=== PATIENT | female | born 1995 | race Caucasian/White ===

== ENCOUNTER 2016-05-14 19:38 | Emergency (ER) | payer SELFPAY ==
[~2016-05-14] VITALS: Ht 172.7 cm; Wt 72.6 kg
[2016-05-14 21:18] LABS: NEG OBC UR NEG; POS OBC UR POS
[2016-05-14 21:22] LABS: BILIRUBIN,URINE NEGATIVE (NEG); GLUCOSE,URINE NEGATIVE (NEG); NITRITE,URINE NEGATIVE (NEG); PROTEIN,URINE NEGATIVE (NEG-TRACE)
[2016-05-14 21:30] LABS: BACTERIA,URINE FEW /HPF (0-FEW); RBC,URINE 0 /HPF (0-2); SQUAMOUS EPITHELIAL CELL,UR MANY /LPF; WBC,URINE 0 /HPF (0-4)
[2016-05-14 21:36] LABS: BASO % 0 % (0-3); EOS % 10 % (0-3); HEMATOCRIT 39.6 % (36.0-47.0); HEMOGLOBIN 13.3 g/dL (12.0-15.5); LYMPH # 1.7 x10^3/uL (1.0-4.8); LYMPH % 21 % (24-48); MEAN CORPUSCULAR HEMOGLOBIN 31 pg (25-35); MEAN CORPUSCULAR HGB CONC 34 g/dL (31-37); MEAN CORPUSCULAR VOLUME 93 fL (79-100); MONO % 8 % (0-9); NEUT % 60 % (31-73); PLATELET COUNT 234 x10^3/uL (140-400); RED BLOOD COUNT 4.26 x10^6/uL (3.50-5.40); RED CELL DISTRIBUTION WIDTH 13.3 % (11.5-14.5); WHITE BLOOD COUNT 8.2 x10^3/uL (4.0-11.0)
[2016-05-14 21:49] LABS: CALCIUM 8.9 mg/dL (8.5-10.1); CREATININE 0.6 mg/dL (0.6-1.0); GFR 126.2; POTASSIUM 4.1 mmol/L (3.5-5.1)
[2016-05-14 21:55] LABS: ALBUMIN 3.4 g/dL (3.4-5.0); ALBUMIN/GLOBULIN RATIO 0.9 (1.0-1.7); TOTAL BILIRUBIN 0.4 mg/dL (0.2-1.0)
--- NOTE | 2016-05-14 23:10 | RAD ---
PROCEDURE Ob ultrasound less than 14 weeks to include transabdominal and transvaginal imaging 05/14/2016 HISTORY Left pelvic pain. TECHNIQUE Using the distended urinary bladder as a sonographic window, a real-time ultrasound examination of the pelvis was performed. Additionally in attempt to better evaluate the uterus and adnexa, a transvaginal ultrasound study was performed. Multiple images were obtained. FINDINGS A gestational sac is seen within the endometrial canal of the body/fundus of the uterus. Within this gestational sac a yolk sac and associated embryonic pole are seen. The CRL of the embryonic pole measures 3.3 millimeters. This corresponds to an estimated gestational age by ultrasound of 6 weeks 0 days +or minus a standard deviation of 4 days. Embryonic cardiac activity is seen with a heart rate of 104 beats per minute. The uterus is otherwise within normal limits. Both ovaries are within normal limits in size and echogenicity. The right ovary measures 2.8 x 2.0 x 1.8 centimeters in size. The left ovary measures 3.0 x 1.7 x 1.5 centimeters in size. No adnexal mass is seen. No free fluid is noted. IMPRESSION Single living IUP with an estimated gestational age by ultrasound of 6 weeks 0 days +or minus a standard deviation of 4 days. The estimated date of delivery by ultrasound is 01/07/2017. Electronically signed by: Rodolfo Diaz MD (May 14, 2016 23:09:34)
--- NOTE | 2016-05-15 00:06 | PHYS DOC ---
Past Medical History Past Medical History: Other Additional Past Medical Histor: eczema Past Surgical History: No Surgical History Alcohol Use: None Drug Use: None Adult General Chief Complaint Chief Complaint: ABDOMINAL PAIN IN HPI HPI Patient is a 21 year old female who has no history significant for hypertension diabetes liver longer kidney problems. No surgeries. No tobacco alcohol or drugs. Not allergic to anything. 1 para 0. Last period was 2 months ago. No fevers shaking chills positive nausea no vomiting diarrhea. No vaginal discharge no chest pain shortness of breath dysuria frequency urgency. No vaginal discharge. Mild left lower abdominal pain. Patient's ER today secondary to abdominal pain and finding out she was recently. Patient's physical exam was unremarkable. Patient has mild tenderness to palpation to her left lower quadrant. Patient's pelvic exam was unremarkable. Os is closed no cervical motion tenderness no vaginal bleeding. Patient's ultrasound revealed a 6 week IUP. Assessment/plan #1 and abdominal pain. Threatened miscarriage. Patient be discharged home in stable condition to follow up with her primary care physician for further outpatient evaluation. Review of Systems Review of Systems Constitutional: Denies fever or chills [] Eyes: Denies change in visual acuity, redness, or eye pain [] All other review systems are negative except as documented in history of present illness portion. Allergies Allergies Allergies Coded Allergies Type Severity Reaction Last Updated Verified No Known Drug Allergies 02/18/14 No Physical Exam Physical Exam Constitutional: Well developed, well nourished, no acute distress, non-toxic appearance. [] HENT: Normocephalic, atraumatic, bilateral external ears normal, oropharynx moist, no oral exudates, nose normal. [] Eyes: PERRLA, EOMI, conjunctiva normal, no discharge. [] Neck: Normal range of motion, no tenderness, supple, no stridor. [] Cardiovascular:Heart rate regular rhythm, no murmur [] Lungs & Thorax: Bilateral breath sounds clear to auscultation [] Abdomen: Bowel sounds normal, soft, no tenderness, no masses, no pulsatile masses. [] Skin: Warm, dry, no erythema, no rash. [] Back: No tenderness, no CVA tenderness. [] Extremities: No tenderness, no cyanosis, no clubbing, ROM intact, no edema. [] Neurologic: Alert and oriented X 3, normal motor function, normal sensory function, no focal deficits noted. [] Psychologic: Affect normal, judgement normal, mood normal. [] Pelvic exam. See above Current Patient Data Vital Signs Vital Signs Date Time Temp Pulse Resp B/P Pulse Ox O2 Delivery O2 Flow Rate FiO2 05/14/16 19:55 99.2 106 20 133/74 100 Room Air 99.2 Lab Values Laboratory Tests Test 05/14/16 19:45 05/14/16 21:30 Urine Collection Type Unknown Urine Color Yellow Urine Clarity Clear Urine pH 7.0 Urine Specific [place] 1.010 Urine Protein Negativemg/dL (NEG-TRACE) Urine Glucose (UA) Negativemg/dL (NEG) Urine Ketones (Stick) Negativemg/dL (NEG) Urine Blood Negative (NEG) Urine Nitrite Negative (NEG) Urine Bilirubin Negative (NEG) Urine Urobilinogen Dipstick 1.0mg/dL (0.2 mg/dL) Urine Leukocyte Esterase Negative (NEG) Urine RBC 0/HPF (0-2) Urine WBC 0/HPF (0-4) Urine Squamous Epithelial Cells Many/LPF Urine Bacteria Few/HPF (0-FEW) Urine Mucus Mod/LPF Urine Test Positive (NEG) White Blood Count 8.2x10^3/uL (4.0-11.0) Red Blood Count 4.26x10^6/uL (3.50-5.40) Hemoglobin 13.3g/dL (12.0-15.5) Hematocrit 39.6% (36.0-47.0) Mean Corpuscular Volume 93fL (79-100) Mean Corpuscular Hemoglobin 31pg (25-35) Mean Corpuscular Hemoglobin Concent 34g/dL (31-37) Red Cell Distribution Width 13.3% (11.5-14.5) Platelet Count 234x10^3/uL (140-400) Neutrophils (%) (Auto) 60% (31-73) Lymphocytes (%) (Auto) 21% (24-48) L Monocytes (%) (Auto) 8% (0-9) Eosinophils (%) (Auto) 10% (0-3) H Basophils (%) (Auto) 0% (0-3) Neutrophils # (Auto) 5.0x10^3uL (1.8-7.7) Lymphocytes # (Auto) 1.7x10^3/uL (1.0-4.8) Monocytes # (Auto) 0.7x10^3/uL (0.0-1.1) Eosinophils # (Auto) 0.8x10^3/uL (0.0-0.7) H Basophils # (Auto) 0.0x10^3/uL (0.0-0.2) Maternal Serum HCG Beta Subunit 47128mIE/mL (0-6) H Sodium Level 139mmol/L (136-145) Potassium Level 4.1mmol/L (3.5-5.1) Chloride Level 105mmol/L (98-107) Carbon Dioxide Level 26mmol/L (21-32) Anion Gap 8 (6-14) Blood Urea Nitrogen 5mg/dL (7-20) L Creatinine 0.6mg/dL (0.6-1.0) Estimated GFR (Cockcroft-Gault) 126.2 BUN/Creatinine Ratio 8 (6-20) Glucose Level 90mg/dL (70-99) Calcium Level 8.9mg/dL (8.5-10.1) Total Bilirubin 0.4mg/dL (0.2-1.0) Aspartate Amino Transferase (AST) 12U/L (15-37) L Alanine Aminotransferase (ALT) 19U/L (14-59) Alkaline Phosphatase 49U/L (46-116) Total Protein 7.0g/dL (6.4-8.2) Albumin 3.4g/dL (3.4-5.0) Albumin/Globulin Ratio 0.9 (1.0-1.7) L Laboratory Tests 05/14/16 21:30 Laboratory Tests 05/14/16 21:30 EKG EKG [] Radiology/Procedures Radiology/Procedures [] Course & Med Decision Making Course & Med Decision Making Pertinent Labs and Imaging studies reviewed. (See chart for details) [] A/P: #1 threatened miscarriage. See above. Patient is clinically hemodynamically stable for discharged home. Precautions were reviewed with the patient. Patient is to follow-up with her primary care physician on an outpatient basis for further OB evaluation. Dragon Disclaimer Dragon Disclaimer This electronic medical record was generated, in whole or in part, using a voice recognition dictation system. Departure Departure Impression: Primary Impression: Threatened miscarriage Disposition: HOME, SELF-CARE Condition: IMPROVED Referrals: NO PCP (PCP) Patient Instructions: Threatened Miscarriage PABLO VILLALBA MD May 15, 2016 00:06
[2016-05-15 00:30] VITALS: BP 128/67
== END 2016-05-15 00:30 | disposition home or self-care (01) ==
LOC: ER 19:38
DX: O20.0 Threatened abortion (principal); Z3A.01 Less than 8 weeks gestation of pregnancy
CPT/HCPCS: 36415; 76801; 80053; 81001; 81025; 84702; 85027; 86901; 99285-25

== ENCOUNTER 2020-12-13 23:47 | Emergency (ER) | payer SELFPAY ==
[~2020-12-13] VITALS: Ht 175.3 cm; Wt 68.1 kg
[2020-12-14 00:53] VITALS: BP 133/87
--- NOTE | 2020-12-14 01:42 | PHYS DOC ---
Past Medical History Past Medical History: Other Additional Past Medical Histor: eczema Past Surgical History: No Surgical History Smoking Status: Current Some Day Smoker Alcohol Use: None Drug Use: None General Adult EDM: Chief Complaint: Body ache, fever, concern about COVID-19 HPI: HPI: 25-year-old female says she just got out of long-term today, says that she has had 3 to 4 days of cough, body ache, sore throat, headache, fevers and chills, denies any shortness of breath or chest pain at this time, no focal numbness or weakness, no history of thromboembolism or PE, says that "they told me in long-term I had Covid but I just want to make sure" Review of Systems: Review of Systems: General: Positive for fever, chills and body aches Eyes: no blurred vision, no diplopia Skin: no rashes Neck: no swelling, no neck stiffness, no neck pain Heme: no bleeding, no lymph node enlargement Ear/Nose/Throat: + sore throat, + runny nose, no hearing loss, no difficulty swallowing Cardiovascular: no Chest pain, no palpitations Respiratory: No dyspnea, + cough, no hemoptysis Gastrointestinal: No abdominal pain, no nausea, no vomiting, no diarrhea, no blood in stool Genitourinary: no dysuria, no hematuria Musculoskeletal: no back pain, no leg pain, no arm pain, no arthralgia Neurologic: no headaches, no dizziness, no focal numbness/tingling, no focal weakness Psych: no depression, no anxiety, no SI/HI *All review of systems are negative other than what is noted above Heart Score: C/O Chest Pain: No Risk Factors: Risk Factors: DM, Current or recent (<one month) smoker, HTN, HLP, family history of CAD, obesity. Risk Scores: Score 0 - 3: 2.5% MACE over next 6 weeks - Discharge Home Score 4 - 6: 20.3% MACE over next 6 weeks - Admit for Clinical Observation Score 7 - 10: 72.7% MACE over next 6 weeks - Early Invasive Strategies Current Medications: Current Medications Medications (Trade) Dose Ordered Sig/Yancy Start Time Stop Time Status Last Admin Dose Admin Dexamethasone Sodium Phosphate (Decadron) 10 mg 1X ONCE 12/14/20 02:00 12/14/20 02:01 Ketorolac Tromethamine (Toradol 30mg Vial) 30 mg 1X ONCE 12/14/20 01:45 12/14/20 01:46 Allergies: Allergies: Allergies Coded Allergies Type Severity Reaction Last Updated Verified Penicillins Allergy Intermediate 12/14/20 Yes hydrocodone Allergy Mild Itching 12/14/20 Yes Physical Exam: PE: Gen-well appearing, no acute distress Head: Normocephalic/Atraumatic ENT: atraumatic, PERRLA, EOMI, oropharynx clear Neck: supple, full ROM/strength, no JVD, no nuchal rigidity Lungs: no distress, speaks in full sentences, Clear to auscultation bilaterally CV: reg rate, rhythm, no murmus/rubs/gallops, peripheral pulses equal in all extremities Abdomen: soft/nontender, no guarding/rebound tenderness, no rigidity, non distended, normoactive bowel sounds Musculoskeletal: full ROM/strength in all extremities, atraumatic, no swelling Back: full range of motion/strength Skin: intact, no rashes Lymph: no gross CORDELL Neuro: alert and oriented x 4, CN 2-12 grossly intact, Motor strength is 5/5 in all extremities, no focal sensory deficits, no focal ataxia, ambulatory with steady gait Psych: normal mood/affect Current Patient Data: Vital Signs: Vital Signs Date Time Temp Pulse Resp B/P (MAP) Pulse Ox O2 Delivery O2 Flow Rate FiO2 12/14/20 01:30 72 18 99 Room Air 12/14/20 00:53 98.6 133/87 (87) 98.6 EKG: EKG: [] Radiology/Procedures: Radiology/Procedures: [] Course & Med Decision Making: Course & Med Decision Making Pertinent Labs and Imaging studies reviewed. (See chart for details) [] Patient presented to the emergency department with symptomatology and exam findings of a suspicion for COVID-19 infection, she is afebrile nontoxic- appearing on arrival, nonfocal neurologic exam, O2 sat on room air is 98%, no clear indication for imaging but at the patient's request I will do a COVID-19 test out of an abundance of caution and for symptom relief I did offer her some Toradol and dexamethasone, Patient was seen in the ED for COVID-19 infection, there is no apparent evidence of any emergency medical pathology at this time, patient was advised follow-up with their primary care provider /physician in the next 24-48 hours and to return to the ED before then if any new or worsening / concerning symptoms had developed. All questions and concerns were addressed at time of disposition Mitzy Disclaimer: Mitzy Disclaimer: This electronic medical record was generated, in whole or in part, using a voice recognition dictation system. Departure Departure Impression: Primary Impression: COVID-19 virus infection Disposition: HOME / SELF CARE / HOMELESS Condition: IMPROVED Referrals: NO PCP (PCP) HERON MENDOZA MD 2 days Patient Instructions: Severe Acute Respiratory Syndrome (SARS), Viral Infe ctions Additional Instructions: The Covid test will take 24 hours to come back, I am going to give you a prescription for some Motrin, steroids and breathing medicines, you need to isolate yourself for the next 10 days, please follow-up with your primary care doctor in the next 48 hours, return to the ER before then if any new or worsening/concerning symptoms develop Scripts Albuterol Sulfate (VENTOLIN HFA INHALER) 18 Gm Hfa.aer.ad 2 PUFF INH QID for FOR ASTHMA, #1 INHALER 0 Refills Prov: RONI PEARSON MD 12/14/20 Methylprednisolone (MEDROL) 4 Mg Tab.ds.pk 1 PKG PO UD for inflammation, #1 PKG Prov: RONI PEARSON MD 12/14/20 Naproxen Sodium (ANAPROX DS) 550 Mg Tablet 1 TAB PO PRN BID PRN for PAIN for 7 Days, #15 TAB 0 Refills Prov: RONI PEARSON MD 12/14/20 RONI PEARSON MD Dec 14, 2020 01:42
[2020-12-14] MEDS ORDERED: KETOROLAC 30 MG/ML VIAL. IM ONE (01:45)
[2020-12-14] MEDS ORDERED: DEXAMETHASONE SOD PHOS 4 MG/ML VIAL IM ONE (02:00)
[2020-12-14] MEDS ORDERED: METH4TAB2 PO (02:09)
[2020-12-14] MEDS ORDERED: VENTOLIN HFA18 GM INH (02:09)
[2020-12-14] MEDS ORDERED: NAPR-682 PO (02:09)
--- NOTE | 2020-12-14 17:48 | NUR ---
IP: Attempted to contact pt concerning covid results. Phone recording indicated it was not receiving calls.
--- NOTE | 2020-12-15 15:39 | NUR ---
IP Attempted again to contact pt but recording on phone states it is not allowing calls.
== END 2020-12-14 02:20 | disposition home or self-care (01) ==
LOC: ER 23:47
DX: U07.1 COVID-19 (principal); F17.200 Nicotine dependence, unspecified, uncomplicated; Z88.0 Allergy status to penicillin; Z88.5 Allergy status to narcotic agent
CPT/HCPCS: 96372; 99284; J1100; J1885; U0003; U0005